=== PATIENT | female | born 1975 | race Caucasian/White ===

== ENCOUNTER 2016-07-10 10:39 | Day surgery (SDC) | payer OTHER ==
[2016-07-10] MEDS ORDERED: REMICADE IV ONE (11:00)
[2016-07-10] MEDS ORDERED: NS IV ONE (11:00)
[2016-07-10] MEDS ORDERED: NS 250 ML ONE (11:05)
[2016-07-10] MEDS ORDERED: SOLU-MEDROL ONE (11:05)
[2016-07-10] MEDS ORDERED: BENADRYL ONE (11:05)
[2016-07-10] MEDS ORDERED: TYLENOL ONE (11:05)
[2016-07-10] MEDS ORDERED: DEMEROL ONE ×3 (11:28→15:34)
[2016-07-10 14:42] VITALS: BP 120/85
== END 2016-07-10 15:48 | disposition home or self-care (01) ==
LOC: INF 10:39
PROVIDERS: ATTEND Internal Medicine Gastroenterology
DX: K50.90 Crohn's disease, unspecified, without complications (principal)
CPT/HCPCS: 96365; 96366; 96375; J1200; J1745; J2175; J2920; J7050

== ENCOUNTER 2016-11-22 23:07 | Inpatient (IN) ==
[2016-11-22] MEDS ORDERED: NS 1,000 ML IV ONE (23:26)
[2016-11-22] MEDS ORDERED: TORADOL IV ONE (23:48)
[2016-11-22] MEDS ORDERED: ZOFRAN IV ONE (23:48)
[2016-11-23 00:21] LABS: URINE MICRO REVIEW NEEDED? NO; URINE SOURCE CLEAN CATCH
[2016-11-23 00:25] LABS: BASO% 0.4 % (0.0-0.8); BILIRUBIN URINE NEGATIVE (NEGATIVE); BLOOD URINE MODERATE (NEGATIVE); COLOR YELLOW; EOS# 0.06 X1000 (0.0-0.7); EOS% 0.3 % (0.0-10.0); GLUCOSE URINE NEGATIVE (NEGATIVE); HEMATOCRIT 37.4 % (37.0-47.0); HEMOGLOBIN 13.1 g/dL (12.0-16.0); IMM GRAN% 0.9 % (0.0-0.5); LEUKOCYTES URINE LARGE (NEGATIVE); LYMPH# 5.07 X1000 (1.2-3.4); LYMPH% 22.8 % (20.5-51.1); MANUAL DIFF NEEDED? NO; MCH 30.2 PG (27-31); MCV 86.2 FL (81-99); MONO# 3.62 X1000 (0.11-0.59); MONO% 16.3 % (1.7-9.3); MPV 11.4 FL (7.4-10.4); NEUT% 59.3 % (42.2-75.2); NITRITE URINE NEGATIVE (NEGATIVE); PLT 445 X1000 (130-400); PROTEIN URINE 50 mg/dL (NEGATIVE); RBC 4.34 XMIL (4.2-5.4); SP GRAVITY URINE 1.013; TURBIDITY URINE CLEAR (CLEAR); UR EPITHELIAL CELLS <10 /HPF (<10); URINE BACTERIA 1+ /HPF; URINE CULTURE NEEDED? YES; URINE WBC TNTC /HPF (<10); UROBILINOGEN URINE NORMAL (NORMAL)
[2016-11-23] MEDS ORDERED: ROCEPHIN 1 GM/NS 1 GM/50 ML IVPB IV ONE (00:32)
[2016-11-23 00:45] LABS: AGAP 23; ALBUMIN 3.7 g/dL (3.5-5.0); ALKALINE PHOSPHATASE 103 U/L (32-104); BUN 8 mg/dL (8-22); CALCIUM 8.7 mg/dL (8.8-10.2); CHLORIDE 80 mmol/L (98-107); COSMO 247; GOT 71 U/L (10-30); GPT 28 U/L (10-36); LIPASE 30 U/L (13-60); POTASSIUM 3.8 mmol/L (3.5-5.1); SODIUM 124 mmol/L (136-145); TCO2 21 mmol/L (25-35); TOTAL BILIRUBIN 0.68 mg/dL (0.20-1.00); TOTAL PROTEIN 8.3 g/dL (6.3-8.3)
[2016-11-23] MEDS ORDERED: MOTRIN PO ONE (00:48)
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
[2016-11-23] MEDS ORDERED: MORPHINE IV PRN (04:01)
[2016-11-23] MEDS ORDERED: LEVAQUIN 750 MG/D5W 750 MG/150 ML IVPB IV SCH (04:01)
[2016-11-23] MEDS ORDERED: ZOFRAN IV PRN (04:01)
[2016-11-23] MEDS ORDERED: TYLENOL PO PRN (04:01)
[2016-11-23 04:19] LABS: AGAP 16; BUN 8 mg/dL (8-22); CHLORIDE 86 mmol/L (98-107); COSMO 254; POTASSIUM 2.6 mmol/L (3.5-5.1); SODIUM 127 mmol/L (136-145); TCO2 25 mmol/L (25-35)
[2016-11-23] MEDS: NS 1,000 ML IV SCH ×2 (04:50→19:08)
[2016-11-23] MEDS: ROCEPHIN 2 GM/NS 2 GM/50 ML IVPB IV SCH (04:50)
[2016-11-23] MEDS: MS CONTIN PO SCH ×2 (09:00→21:33)
[2016-11-23] MEDS: NEXIUM PO SCH (09:30)
--- NOTE | 2016-11-23 11:31 | Diag Imaging Result Doc PS360 ---
EXAM: CHEST-2 VIEWS - 11/22/2016 HISTORY: fever TECHNIQUE: Chest two views COMPARISON: One view chest of 08/28/2013 FINDINGS: Heart size is normal. The lungs appear clear. There is no pleural effusion or pneumothorax identified. There is mild thoracic dextroscoliosis noted. IMPRESSION: No evidence of acute disease. Electronically signed by Fernando Jaimes 11/23/2016 11:29 AM
[2016-11-23] MEDS ORDERED: MAGNESIUM SULFATE 2 GM/S.W.I. 2 GM/50 ML IVPB IV ONE (13:16)
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
[2016-11-23] MEDS: POTASSIUM CHLORIDE 20 MEQ/SWI 20 MEQ/100 ML IVPB IV SCH ×3 (14:00→18:08)
[2016-11-23] MEDS ORDERED: KLOR-CON POWDER PACKET PO ONE (16:17)
[2016-11-24] MEDS ORDERED: TORADOL IV ONE ×2 (00:22→20:48)
[2016-11-24] MEDS ORDERED: NORCO-10 PO ONE (00:23)
[2016-11-24] MEDS ORDERED: DEMEROL IV ONE (00:45)
[2016-11-24] MEDS: ROCEPHIN 2 GM/NS 2 GM/50 ML IVPB IV SCH (01:07)
[2016-11-24 01:16] LABS: UR AMPHETAMINES QUAL NONE DETECTED (NONE DETECT); UR BARBITUATES QUAL NONE DETECTED (NONE DETECT); UR BENZODIAZEPIN QUAL NONE DETECTED (NONE DETECT); UR CANNABINOIDS QUAL PRESUMPTIVE POSITIVE (NONE DETECT); UR COCAINE QUAL NONE DETECTED (NONE DETECT); UR METHADONE QUAL NONE DETECTED (NONE DETECT); UR OPIATES QUAL PRESUMPTIVE POSITIVE (NONE DETECT); UR OXYCODONE QUAL NONE DETECTED (NONE DETECT); UR PCP QUAL NONE DETECTED (NONE DETECT)
[2016-11-24] MEDS ORDERED: KLOR-CON PO ONE (02:08)
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
[2016-11-24 06:29] LABS: MANUAL DIFF NEEDED? NO
[2016-11-24] MEDS: NEXIUM PO SCH (06:33)
[2016-11-24 06:39] LABS: BASO% 0.2 % (0.0-0.8); EOS# 0.05 X1000 (0.0-0.7); EOS% 0.4 % (0.0-10.0); HEMATOCRIT 32.6 % (37.0-47.0); HEMOGLOBIN 11.4 g/dL (12.0-16.0); IMM GRAN# 0.04 X1000 (0.0-0.04); IMM GRAN% 0.3 % (0.0-0.5); LYMPH# 2.95 X1000 (1.2-3.4); LYMPH% 23.3 % (20.5-51.1); MCH 30.1 PG (27-31); MONO# 1.93 X1000 (0.11-0.59); MONO% 15.3 % (1.7-9.3); MPV 10.6 FL (7.4-10.4); NEUT% 60.5 % (42.2-75.2); PLT 507 X1000 (130-400); RBC 3.79 XMIL (4.2-5.4)
[2016-11-24] MEDS: MS CONTIN PO SCH ×2 (11:07→20:58)
[2016-11-24] MEDS: NS 1,000 ML IV SCH ×2 (11:07→20:58)
[2016-11-24] MEDS ORDERED: POTASSIUM CHLORIDE 20% LIQUID PO ONE (15:57)
--- NOTE | 2016-11-24 16:14 | PROGRESS NOTE ---
DATE: 11/24/2016 SUBJECTIVE: She was lying, resting comfortably. She reports that she hurts all over. She is disgusted we are not giving her more pain medicine. OBJECTIVE: Vital Signs: Remains afebrile. Temperature 97.4 degrees, pulse 79, respirations 20, blood pressure 95/54. HEENT: Pupils are equal, round. Lungs: Clear in all lung phelps. Cardiovascular: Regular rhythm and rate without murmur or S3. Abdomen: Soft. Skin: Warm and dry. LABORATORY STUDIES: Urine output 2400 mL. White count 12,640, hematocrit 32, platelet count 507,000. Sodium 127, potassium 2.6, chloride 86, BUN 8, creatinine 1.0. ASSESSMENT AND PLAN: 1. Admitted for urinary tract infection, probable poly nephritis. White count has come down. Clinically better. 2. Hypokalemia. It has been supplemented. 3. Hyponatremia. Getting IV fluids. 4. Chronic pain syndrome, history of chronic opioid use. 5. She does have a history of Crohn disease and apparently is getting Remicade at present time. She is already on her medicine at home which is morphine ER 15 mg b.i.d. I have explained we do not want to go up on her opioids and she is not happy with this as well. Continue ceftriaxone. Will check electrolytes tomorrow. Hopefully she can go home tomorrow. cc: Isacc Bhatt MD
[2016-11-25] MEDS: ROCEPHIN 2 GM/NS 2 GM/50 ML IVPB IV SCH (04:22)
[2016-11-25] MEDS: NEXIUM PO SCH (06:44)
[2016-11-25 06:45] LABS: AGAP 12; BUN 7 mg/dL (8-22); CALCIUM 8.2 mg/dL (8.8-10.2); CHLORIDE 105 mmol/L (98-107); COSMO 275; MAGNESIUM 1.8 mg/dL (1.5-2.7); POTASSIUM 3.5 mmol/L (3.5-5.1); SODIUM 139 mmol/L (136-145); TCO2 22 mmol/L (25-35)
[2016-11-25] MEDS: NS 1,000 ML IV SCH ×2 (06:45)
[2016-11-25 08:15] VITALS: BP 99/54
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
[2016-11-25] MEDS: MS CONTIN PO SCH (10:35)
== END 2016-11-25 13:07 | disposition home or self-care (01) ==
LOC: ED 23:07 → 4N 11-23 02:47 → SUATTDRO 11-23 02:47 → EDIPHOLD 11-23 03:31 → 4N 11-23 03:53
PROVIDERS: ATTEND Emergency Medicine